=== PATIENT | female | born 1955 | race Caucasian/White ===

== ENCOUNTER 2017-06-25 18:47 | Emergency (ER) | payer OTHER ==
--- NOTE | 2017-06-25 19:17 | ED Physician Documentation ---
PD HPI HEAD INJURY - Stated complaint Stated Complaint: HEAD INJ - Chief complaint Chief Complaint: Neuro - History obtained from History obtained from: Patient, Family () - History of Present Illness Mechanism of head injury: Blow (Hit the top of her head quite hard with the larson of her car about an hour ago. She has a pressure-like frontal headache which she describes as moderate and some dizziness and blurry vision but no vomiting or nausea. She is not anticoagulated.) Review of Systems Constitutional: reports: Reviewed and negative Eyes: denies: Loss of vision, Photophobia, Discharge, Irritation Ears: denies: Loss of hearing, Ear pain Nose: denies: Rhinorrhea / runny nose, Congestion PD PAST MEDICAL HISTORY - Past Medical History ADMITTING MANAGER: Breast cancer - Past Surgical History General: Cholecystectomy, Other /ADMITTING MANAGER: Hysterectomy - Present Medications Home Medications: Ambulatory Orders Medication Instructions Recorded Confirmed Atorvastatin [Lipitor] 20 mg PO DAILY 11/03/16 06/25/17 Bacillus Coagulans [Probiotic] 1 tab PO BID 11/03/16 06/25/17 Calcium/Magnesium/Zinc 1 tab PO BID 11/03/16 06/25/17 [Neolvkd-Ywlxdjmdz-Vcsl Tablet] Digestive Enzymes Combo No.7 1 tab PO TID 11/03/16 06/25/17 [Superior Digestive Enzyme] Ergocalciferol [Vitamin D2] 5,000 mg PO DAILY 11/03/16 06/25/17 Levothyroxine [Synthroid] 50 mcg PO DAILY 11/03/16 06/25/17 Liothyronine [Cytomel] 5 mcg PO BID 11/03/16 06/25/17 Stanton-3 Fatty Acids [Fish Oil] 1 tab PO DAILY 11/03/16 06/25/17 Spironolactone 1 tab PO DAILY 11/03/16 06/25/17 Sumatriptan Succinate [Imitrex] 1 tab PO DAILY 11/03/16 06/25/17 metFORMIN [Glucophage] 1 tab PO DAILY 11/03/16 06/25/17 - Allergies Allergies/Adverse Reactions: Allergies Allergy/AdvReac Type Severity Reaction Status Date / Time Sulfa (Sulfonamide AdvReac Rash Verified 06/25/17 18:54 Antibiotics) zolpidem tartrate * AdvReac Nausea Verified 06/25/17 18:54 [From Ambien] - Social History Does the pt smoke?: No Smoking Status: Former smoker Does the pt drink ETOH?: No Does the pt have substance abuse?: No - Immunizations Immunizations are current?: No PD ED PE NORMAL - Vitals Vital signs reviewed: Yes - General General: Alert and oriented X 3, No acute distress - HEENT HEENT: PERRL, EOMI - Neck Neck: Supple, no meningeal sign, No bony TTP - Neuro Neuro: Alert and oriented X 3, electrical line splicer 2-12 intact, No motor deficit, No sensory deficit, Normal speech - Psych Psych: Normal mood, Normal affect Results - Vitals Vitals: Vital Signs - 24 hr 06/25/17 18:51 Temperature 36.0 C L Heart Rate 83 Respiratory 15 Rate Blood Pressure 144/65 H O2 Saturation 98 Oxygen O2 Source Room air - Rads (name of study) CT Head Radiology: EMP read contemporaneously (NAD) Departure - Departure Disposition: 01 Home, Self Care Clinical Impression: Concussion Qualifiers: Encounter type: initial encounter Loss of consciousness presence/duration: without LOC Qualified Code(s): S06.0X0A - Concussion without loss of consciousness, initial encounter Condition: Good Record reviewed to determine appropriate education?: Yes Instructions: ED Head Injury Closed Comments: Your blood pressure was elevated today on check into the emergency department. This does not mean that you have hypertension, it is a common phenomenon to come to the emergency department and have elevated blood pressure. I recommend that she see her primary care physician within the week to have it rechecked when you are feeling better.
[2017-06-25] MEDS ORDERED: ACETAMINOPHEN 500 MG TABLET PO STA (19:33)
[2017-06-25] MEDS ORDERED: ACETAMINOPHEN 500 MG TABLET PO ONE (19:39)
--- NOTE | 2017-06-25 19:44 | CT Preliminary Report ---
Exam: CT Head W/O IMPRESSION: 1. No acute intracranial abnormality is identified. [facility] SITE ID: [id number]
--- NOTE | 2017-06-25 19:46 | CT Report ---
EXAM: CT HEAD EXAM DATE: 06/25/2017 07:28 PM. CLINICAL HISTORY: Head injury. Taylor back fell on top of head. COMPARISON: None. TECHNIQUE: Multiaxial CT images were obtained from the foramen magnum to the vertex. IV contrast: Non e. Reformats: Coronal. In accordance with CT protocol optimization, one or more of the following dose reduction techniques w ere utilized for this exam: automated exposure control, adjustment of mA and/or KV based on patient s ize, or use of iterative reconstructive technique. FINDINGS: Parenchyma: No intraparenchymal hemorrhage. No evidence of mass, midline shift, or CT findings of inf arction. Carrion-white differentiation is distinct. Extraaxial Spaces: Normal for age. No subdural or epidural collections identified. Ventricles: Normal in size and position. Sinuses: Imaged paranasal sinuses, orbits, and mastoids show no significant abnormality. Bones: No evidence of fracture or calvarial defect. Other: None. IMPRESSION: 1. No acute intracranial abnormality is identified. [facility] Referring Provider Line: [phone] SITE ID: [id number]
[2017-06-25 20:00] VITALS: BP 126/68
== END 2017-06-25 20:05 | disposition home or self-care (01) ==
LOC: ED 18:47
DX: S06.0X0A Concussion without loss of consciousness, initial encounter (principal); W22.09XA Striking against other stationary object, initial encounter; Z85.3 Personal history of malignant neoplasm of breast; Z87.891 Personal history of nicotine dependence; R03.0 Elevated blood-pressure reading, without diagnosis of hypertension
CPT/HCPCS: 70450; 99283; A9270

== ENCOUNTER 2017-09-01 07:04 | Outpatient (CLI) | payer OTHER ==
[2017-09-01 12:36] LABS: ALBUMIN/GLOBULIN RATIO 1.3 (1.0-2.2); BILIRUBIN,TOTAL 0.3 mg/dL (0.2-1.0); CALCIUM 9.6 mg/dL (8.5-10.3); POTASSIUM 3.9 mmol/L (3.5-5.0); TOTAL PROTEIN 7.5 g/dL (6.7-8.2)
[2017-09-01 12:40] LABS: CHOL/HDL RATIO 2.8 (<4.4); CHOLESTEROL 152 mg/dL; HDL CHOLESTEROL 55 mg/dL; LDL/HDL RATIO 1.4 (<4.4); TRIGLYCERIDES 89 mg/dL; VLDL CHOLESTEROL 18 mg/dL
[2017-09-01 12:43] LABS: HEMOGLOBIN A1C 0.56 g/dL
[2017-09-01 12:50] LABS: THYROID STIMULATING HORMONE 1.89 uIU/mL (0.34-5.60)
== END 2017-09-01 07:05 | disposition home or self-care (01) ==
LOC: LAB.F 07:04
PROVIDERS: ATTEND Internal Medicine
DX: Z00.00 Encounter for general adult medical examination without abnormal findings (principal); E03.8 Other specified hypothyroidism; E78.2 Mixed hyperlipidemia; E03.9 Hypothyroidism, unspecified
CPT/HCPCS: 36415; 80053; 80061; 83036; 84436; 84439; 84443; 84481

== ENCOUNTER 2018-06-22 07:30 | Outpatient (CLI) | payer BC ==
[2018-06-22 12:03] LABS: ALBUMIN 3.8 g/dL (3.2-5.5); ALBUMIN/GLOBULIN RATIO 1.2 (1.0-2.2); ALKALINE PHOSPHATASE 64 IU/L (42-121); ALT ALANINE AMINOTRANSFERASE 26 IU/L (10-60); AST ASPARTATE AMINOTRANSFERASE 21 IU/L (10-42); BILIRUBIN,TOTAL 0.8 mg/dL (0.2-1.0); BUN - BLOOD UREA NITROGEN 20 mg/dL (6-20); CARBON DIOXIDE - CO2 26 mmol/L (21-32); CHLORIDE 106 mmol/L (101-111); CHOL/HDL RATIO 2.8 (<4.4); CHOLESTEROL 159 mg/dL; CREATININE 0.8 mg/dL (0.4-1.0); GFR - MDRD 72 (>89); GLUCOSE 96 mg/dL (70-100); HDL CHOLESTEROL 56 mg/dL; LDL CHOLESTEROL,CALCULATED 80 mg/dL; LDL/HDL RATIO 1.4 (<4.4); SODIUM 139 mmol/L (135-145); TOTAL PROTEIN 7.1 g/dL (6.7-8.2); VLDL CHOLESTEROL 23 mg/dL
[2018-06-22 12:06] LABS: CREATININE,URINE 118.8 mg/dL; MICROALBUM/CREATININE RATIO,UR 2.5 ug/mg (<30.0); MICROALBUMIN,URINE 0.3 mg/dL (0-300.0)
[2018-06-22 12:07] LABS: HB2 TOTAL 14.4 g/dL; HEMOGLOBIN A1C 0.54 g/dL; HEMOGLOBIN A1C % 5.6 % (4.6-6.2)
[2018-06-22 12:13] LABS: THYROID STIMULATING HORMONE 1.13 uIU/mL (0.34-5.60)
[2018-06-22 12:15] LABS: FREE T4 (FREE THYROXINE) 0.75 ng/dL (0.58-1.64)
== END 2018-06-22 07:31 | disposition home or self-care (01) ==
LOC: LAB.F 07:30
PROVIDERS: ATTEND Internal Medicine Endocrinology, Diabetes & Metabolism
DX: E03.8 Other specified hypothyroidism (principal); E88.81 Metabolic syndrome and other insulin resistance
CPT/HCPCS: 36415; 80053; 80061; 82043; 82570; 83036; 83721; 84439; 84443; 84481

== ENCOUNTER 2018-09-22 08:00 | Outpatient (CLI) | payer BC | END 2018-09-22 08:01 | disposition home or self-care (01) | LOC: LAB.R 08:00 | PROVIDERS: ATTEND Internal Medicine | DX: R15.2 Fecal urgency (principal) | CPT/HCPCS: 81599; 87045; 87046; 87493 ==

== ENCOUNTER 2018-12-07 07:02 | Outpatient (CLI) | payer BC ==
[2018-12-07 11:59] LABS: ALBUMIN 3.9 g/dL (3.2-5.5); ALBUMIN/GLOBULIN RATIO 1.3 (1.0-2.2); ALKALINE PHOSPHATASE 92 IU/L (42-121); ALT ALANINE AMINOTRANSFERASE 38 IU/L (10-60); AST ASPARTATE AMINOTRANSFERASE 33 IU/L (10-42); BILIRUBIN,TOTAL 0.7 mg/dL (0.2-1.0); BUN - BLOOD UREA NITROGEN 14 mg/dL (6-20); CALCIUM 8.7 mg/dL (8.5-10.3); CARBON DIOXIDE - CO2 26 mmol/L (21-32); CHLORIDE 102 mmol/L (101-111); CHOL/HDL RATIO 4.7 (<4.4); CHOLESTEROL 274 mg/dL; CREATININE 0.6 mg/dL (0.4-1.0); GFR - MDRD 101 (>89); GLUCOSE 91 mg/dL (70-100); HDL CHOLESTEROL 58 mg/dL; LDL CHOLESTEROL,CALCULATED 182 mg/dL; LDL/HDL RATIO 3.1 (<4.4); SODIUM 137 mmol/L (135-145); TOTAL PROTEIN 6.9 g/dL (6.7-8.2); VLDL CHOLESTEROL 34 mg/dL
[2018-12-07 12:06] LABS: T4 (THYROXINE) 8.64 ug/dL (6.09-12.23)
[2018-12-07 12:09] LABS: THYROID STIMULATING HORMONE 2.26 uIU/mL (0.34-5.60)
[2018-12-07 12:54] LABS: HEMOGLOBIN A1C 0.56 g/dL; HEMOGLOBIN A1C % 5.6 % (4.6-6.2)
[2018-12-08 12:28] LABS: HEPATITIS C ANTIBODY NON-REACTIVE (NON-REACTIVE)
== END 2018-12-07 07:03 | disposition home or self-care (01) ==
LOC: LAB.F 07:02
PROVIDERS: ATTEND Internal Medicine
DX: Z00.00 Encounter for general adult medical examination without abnormal findings (principal); E78.2 Mixed hyperlipidemia; E03.9 Hypothyroidism, unspecified; Z11.59 Encounter for screening for other viral diseases
CPT/HCPCS: 36415; 80053; 80061; 83036; 83721; 84436; 84443; 84481; 86803

== ENCOUNTER 2018-12-17 13:46 | Emergency (ER) | payer BC ==
[2018-12-17 14:27] LABS: BASOPHILS # (AUTO) 0.1 10^3/uL (0.0-0.1); BASOPHILS % (AUTO) 0.9 %; EOSINOPHILS # (AUTO) 0.1 10^3/uL (0.0-0.7); EOSINOPHILS % (AUTO) 1.2 %; HGB - HEMOGLOBIN 14.6 g/dL (12.0-16.0); LYMPHOCYTES # (AUTO) 1.7 10^3/uL (1.5-3.5); LYMPHOCYTES % (AUTO) 25.5 %; MEAN CORPUSCULAR HEMOGLOBIN 29.7 pg (27.0-31.0); MEAN CORPUSCULAR VOLUME 87.2 fL (81.0-99.0); MEAN PLATELET VOLUME 7.2 fL (7.9-10.8); MONOCYTES # (AUTO) 0.5 10^3/uL (0.0-1.0); MONOCYTES % (AUTO) 6.9 %; NEUTROPHILS # (AUTO) 4.3 10^3/uL (1.5-6.6); NEUTROPHILS % (AUTO) 65.5 %; PLT - PLATELET COUNT 326 10^3/uL (130-450); RED BLOOD COUNT 4.93 10^6/uL (4.20-5.40); RED CELL DISTRIBUTION WIDTH 13.1 % (12.0-15.0); WHITE BLOOD COUNT 6.6 x10^3/uL (4.8-10.8)
--- NOTE | 2018-12-17 14:30 | XRAY Report ---
Reason: chest pain Procedure Date: 12/17/2018 Accession Number: [id number] / [id number] Procedure: XR - Chest 1 View X-Ray CPT Code: 29875 FULL RESULT: EXAM: CHEST RADIOGRAPHY EXAM DATE: 12/17/2018 02:06 PM. CLINICAL HISTORY: Chest pain. History of breast cancer. Family history of heart disease. COMPARISON: 03/21/2012 11:02 AM. TECHNIQUE: 1 view. FINDINGS: Lungs/Pleura: No focal opacities evident. No pleural effusion. No pneumothorax. Mediastinum: Within exam limitations, the cardiomediastinal contour is normal. Other: None. IMPRESSION: Normal single view chest. [facility]
--- NOTE | 2018-12-17 14:33 | ED Physician Documentation ---
PD HPI CHEST PAIN - Stated complaint Stated Complaint: CHEST PX - Chief complaint Chief Complaint: Cardiac - History obtained from History obtained from: Patient - History of Present Illness Timing - onset: Today (she has had right sided headache for several days, not typical for migraines, and then today had feeling of lightheaded, and some chest pressure across chest. Some posterior neck pain. Seen by PMD yesterday for routine visit and told of the headache. Had some labs and ESR done, which resulted today as normal. Also had heart calcium scoring done and it was 0, per patient, so very low risk of CAD.) Timing - onset during: Rest Timing - details: Gradual onset, Still present, Waxing and waning Quality: Pressure, Tightness. No: Sharp, Tearing Location: Substernal Radiation: Neck, Back Worsened by: No: Exertion, Inspiration Associated symptoms: Shortness of air, Nausea, Feeling faint / dizzy. No: Vomiting, General Weakness, Palpitations, Cough Similar symptoms before: Has not had sx before Recently seen: Clinic (yesterday) Review of Systems Constitutional: denies: Fever, Chills, Myalgias Nose: denies: Rhinorrhea / runny nose, Congestion Throat: denies: Sore throat Cardiac: denies: Palpitations, Pedal edema, Calf pain Respiratory: denies: Cough, Wheezing GI: reports: Nausea. denies: Abdominal Pain, Vomiting, Diarrhea Neurologic: reports: Headache (for past 3-4 days). 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 MECHANIC: Hysterectomy - Present Medications Home Medications: Ambulatory Orders Medication Instructions Recorded Confirmed Bacillus Coagulans [Probiotic] 1 tab PO BID 11/03/16 12/17/18 Calcium/Magnesium/Zinc 1 tab PO BID 11/03/16 12/17/18 [Pjtyppb-Qnmjlmggo-Doxw Tablet] Digestive Enzymes Combo No.7 1 tab PO TID 11/03/16 12/17/18 [Superior Digestive Enzyme] Levothyroxine [Synthroid] 50 mcg PO DAILY 11/03/16 12/17/18 Liothyronine [Cytomel] 5 mcg PO BID 11/03/16 12/17/18 Sumatriptan Succinate [Imitrex] 1 tab PO DAILY 11/03/16 12/17/18 metFORMIN [Glucophage] 1 tab PO DAILY 11/03/16 12/17/18 Dexamethasone [Decadron] 4 mg PO DAILY #5 tablet 12/17/18 Ondansetron Odt [Zofran] 4 mg TL Q6H PRN #10 tablet 12/17/18 - Allergies Allergies/Adverse Reactions: Allergies Allergy/AdvReac Type Severity Reaction Status Date / Time Sulfa (Sulfonamide AdvReac Rash Verified 06/25/17 18:54 Antibiotics) zolpidem tartrate * AdvReac Nausea Verified 12/17/18 13:55 [From Ambien] - Social History Does the pt smoke?: No Smoking Status: Former smoker Does the pt drink ETOH?: No Does the pt have substance abuse?: No - Immunizations Immunizations are current?: No PD ED PE NORMAL - Vitals Vital signs reviewed: Yes - General General: Alert and oriented X 3, Well developed/nourished - HEENT HEENT: Ears normal, Moist mucous membranes, Pharynx benign, Other (mild tenderness at temples bilaterally. ) - Neck Neck: Supple, no meningeal sign, No adenopathy - Cardiac Cardiac: RRR, No murmur - Respiratory Respiratory: Clear bilaterally, Other (no chestwall tenderness) - Abdomen Abdomen: Soft, Non tender - Back Back: No CVA TTP - Derm Derm: Normal color, Warm and dry, No rash - Extremities Extremities: No tenderness to palpate, Normal ROM s pain, No edema, No calf tenderness / cord - Neuro Neuro: Alert and oriented X 3, special agent in charge 2-12 intact, No motor deficit, No sensory deficit, Normal speech Eye Opening: Spontaneous Motor: Obeys Commands Verbal: Oriented GCS Score: 15 Results - Vitals Vitals: Vital Signs - 24 hr 12/17/18 12/17/18 12/17/18 13:52 14:36 16:26 Temperature 36.1 C L Heart Rate 100 75 66 Respiratory 20 16 14 Rate Blood Pressure 144/78 H 141/80 H 126/75 O2 Saturation 96 100 98 Oxygen O2 Source Room air - Labs Labs: Laboratory Tests 12/17/18 12/17/18 12/17/18 13:59 13:59 13:59 WBC 6.6 RBC 4.93 Hgb 14.6 Hct 43.0 MCV 87.2 MCH 29.7 MCHC 34.0 RDW 13.1 Plt Count 326 MPV 7.2 L Neut # (Auto) 4.3 Lymph # (Auto) 1.7 Dougherty # (Auto) 0.5 Eos # (Auto) 0.1 Baso # (Auto) 0.1 Absolute Nucleated RBC 0.01 Nucleated RBC % 0.1 D-Dimer Sodium 139 Potassium 3.8 Chloride 105 Carbon Dioxide 25 Anion Gap 9.0 BUN 21 H Creatinine 0.9 Estimated GFR (MDRD) 63 L Glucose 95 Calcium 9.3 Total Bilirubin 0.7 AST 25 ALT 28 Alkaline Phosphatase 96 Troponin I < 0.04 Total Protein 7.8 Albumin 4.4 Globulin 3.4 Albumin/Globulin Ratio 1.3 Lipase 35 12/17/18 13:59 WBC RBC Hgb Hct MCV MCH MCHC RDW Plt Count MPV Neut # (Auto) Lymph # (Auto) Dougherty # (Auto) Eos # (Auto) Baso # (Auto) Absolute Nucleated RBC Nucleated RBC % D-Dimer < 200.0 L Sodium Potassium Chloride Carbon Dioxide Anion Gap BUN Creatinine Estimated GFR (MDRD) Glucose Calcium Total Bilirubin AST ALT Alkaline Phosphatase Troponin I Total Protein Albumin Globulin Albumin/Globulin Ratio Lipase PD MEDICAL DECISION MAKING - ED course Complexity details: reviewed results (she also had ESR done at PMD office yesterday which resulted at 20 (normal range).), considered differential (her headache is improved with meds tailored toward migraine. I don't feel imaging is needed. Her chest pain does not sound exertional, and her tests are negative, so I don't feel further testing needed (negative trop, BNP, d-dimer, ESR (from PMD office yesterday) and CXR). Also had calcium scoring result 0 yesterday, adding to low risk for CAD. ), d/w patient Departure - Departure Disposition: 01 Home, Self Care Clinical Impression: Tightness in chest Migraine headache Qualifiers: Migraine type: without aura Status migrainosus presence: with status migrainosus Intractability: not intractable Qualified Code(s): G43.001 - Migraine without aura, not intractable, with status migrainosus Condition: Stable Record reviewed to determine appropriate education?: Yes Instructions: ED Chest Pain Atypical Unkn Cause, ED Cephalgia Unspecified Follow-Up: Francisco Ching MD [Primary Care Provider] - Prescriptions: Dexamethasone [Decadron] 4 mg PO DAILY #5 tablet Ondansetron Odt [Zofran] 4 mg TL Q6H PRN #10 tablet PRN Reason: Nausea / Vomiting Comments: There is no signs of more significant cause of the chest tightness. See how it does over the next few days. Consider some anti-inflammatory such as naproxen or ibuprofen couple times a day. The headache sounds like a an atypical persistent migraine. Consider continuing steroid daily for the next few days to minimize rebound. Ondansetron if needed for nausea. Recheck if recurrent or persistent headache or other symptoms. Discharge Date/Time: 12/17/18 16:54
[2018-12-17 14:41] LABS: ALBUMIN 4.4 g/dL (3.2-5.5); ALBUMIN/GLOBULIN RATIO 1.3 (1.0-2.2); BILIRUBIN,TOTAL 0.7 mg/dL (0.2-1.0); CALCIUM 9.3 mg/dL (8.5-10.3); CREATININE 0.9 mg/dL (0.4-1.0); TOTAL PROTEIN 7.8 g/dL (6.7-8.2)
[2018-12-17] MEDS ORDERED: SODIUM CHLORIDE 0.9% 1,000 ML IV ONE (15:00)
[2018-12-17] MEDS ORDERED: KETOROLAC 30 MG/ML VIAL IVP STA (15:01)
[2018-12-17] MEDS ORDERED: PROCHLORPERAZINE 10 MG/2 ML VIAL IVP STA (15:01)
[2018-12-17] MEDS ORDERED: DEXAMETHASONE 10 MG/ML VIAL IVP STA (15:01)
[2018-12-17] MEDS ORDERED: diphenhydrAMINE INJ 50 MG/ML VIAL IVP STA (15:01)
[2018-12-17 16:27] VITALS: BP 126/75
== END 2018-12-17 16:54 | disposition home or self-care (01) ==
LOC: ED 13:46
DX: R07.89 Other chest pain (principal); G43.001 Migraine without aura, not intractable, with status migrainosus; E11.9 Type 2 diabetes mellitus without complications; E03.9 Hypothyroidism, unspecified; Z87.891 Personal history of nicotine dependence
CPT/HCPCS: 36415; 71045; 80053; 83690; 84484; 85025; 85379; 93005; 96374; 96375; 99283; 99284; J1200

== ENCOUNTER 2019-02-02 09:51 | Outpatient (CLI) | payer BC ==
[2019-02-02 18:24] LABS: ALBUMIN 4.3 g/dL (3.2-5.5); ALBUMIN/GLOBULIN RATIO 1.4 (1.0-2.2); BILIRUBIN,TOTAL 0.7 mg/dL (0.2-1.0); CALCIUM 9.1 mg/dL (8.5-10.3); CREATININE 0.7 mg/dL (0.4-1.0); TOTAL PROTEIN 7.3 g/dL (6.7-8.2)
[2019-02-02 20:19] LABS: HB2 TOTAL 15.7 g/dL; HEMOGLOBIN A1C 0.58 g/dL; HEMOGLOBIN A1C % 5.5 % (4.6-6.2)
== END 2019-02-02 09:52 | disposition home or self-care (01) ==
LOC: LAB.F 09:51
PROVIDERS: ATTEND Internal Medicine Endocrinology, Diabetes & Metabolism
DX: E88.81 Metabolic syndrome and other insulin resistance (principal)
CPT/HCPCS: 36415; 80053; 81599; 83036; 83525

== ENCOUNTER 2019-06-13 07:12 | Outpatient (CLI) | payer BC ==
[2019-06-13 10:22] LABS: ALBUMIN 4.1 g/dL (3.2-5.5); ALBUMIN/GLOBULIN RATIO 1.2 (1.0-2.2); ALKALINE PHOSPHATASE 77 IU/L (42-121); ALT ALANINE AMINOTRANSFERASE 18 IU/L (10-60); AST ASPARTATE AMINOTRANSFERASE 17 IU/L (10-42); BILIRUBIN,TOTAL 0.7 mg/dL (0.2-1.0); BUN - BLOOD UREA NITROGEN 21 mg/dL (6-20); CALCIUM 9.3 mg/dL (8.5-10.3); CARBON DIOXIDE - CO2 25 mmol/L (21-32); CHLORIDE 106 mmol/L (101-111); CHOLESTEROL 277 mg/dL; CREATININE 0.9 mg/dL (0.4-1.0); GFR - MDRD 63 (>89); GLUCOSE 97 mg/dL (70-100); HDL CHOLESTEROL 55 mg/dL; LDL CHOLESTEROL,CALCULATED 190 mg/dL; LDL/HDL RATIO 3.5 (<4.4); SODIUM 142 mmol/L (135-145); TOTAL PROTEIN 7.4 g/dL (6.7-8.2); VLDL CHOLESTEROL 32 mg/dL
[2019-06-13 10:30] LABS: CREATININE,URINE 140.1 mg/dL; MICROALBUM/CREATININE RATIO,UR 3.6 ug/mg (<30.0); MICROALBUMIN,URINE 0.5 mg/dL (0-300.0)
[2019-06-13 10:32] LABS: HB2 TOTAL 14.4 g/dL; HEMOGLOBIN A1C 0.59 g/dL; HEMOGLOBIN A1C % 5.9 % (4.6-6.2); THYROID STIMULATING HORMONE 1.74 uIU/mL (0.34-5.60)
[2019-06-13 10:34] LABS: FREE T4 (FREE THYROXINE) 0.71 ng/dL (0.58-1.64)
== END 2019-06-13 07:13 | disposition home or self-care (01) ==
LOC: LAB.S 07:12
PROVIDERS: ATTEND Internal Medicine Endocrinology, Diabetes & Metabolism
DX: E03.8 Other specified hypothyroidism (principal); E88.81 Metabolic syndrome and other insulin resistance
CPT/HCPCS: 36415; 80053; 80061; 82043; 82570; 83036; 83721; 84439; 84443; 84481

== ENCOUNTER 2019-07-17 07:05 | Outpatient (CLI) | payer BC ==
[2019-07-17 10:13] LABS: BASOPHILS # (AUTO) 0.1 10^3/uL (0.0-0.1); BASOPHILS % (AUTO) 0.8 %; EOSINOPHILS # (AUTO) 0.2 10^3/uL (0.0-0.7); EOSINOPHILS % (AUTO) 3.4 %; HGB - HEMOGLOBIN 13.4 g/dL (12.0-16.0); LYMPHOCYTES % (AUTO) 34.1 %; MEAN CORPUSCULAR HEMOGLOBIN 30.2 pg (27.0-31.0); MEAN CORPUSCULAR VOLUME 91.6 fL (81.0-99.0); MEAN PLATELET VOLUME 9.5 fL (7.9-10.8); MONOCYTES # (AUTO) 0.7 10^3/uL (0.0-1.0); MONOCYTES % (AUTO) 11.4 %; NEUTROPHILS # (AUTO) 2.9 10^3/uL (1.5-6.6); PLT - PLATELET COUNT 286 10^3/uL (130-450); RED BLOOD COUNT 4.43 10^6/uL (4.20-5.40); RED CELL DISTRIBUTION WIDTH 13.2 % (12.0-15.0); WHITE BLOOD COUNT 5.9 x10^3/uL (4.8-10.8)
[2019-07-17 10:32] LABS: URIC ACID 7.6 mg/dL (2.6-7.2)
[2019-07-17 10:34] LABS: CRP - C-REACTIVE PROTEIN < 1.0 mg/dL (0-1.0)
== END 2019-07-17 07:06 | disposition home or self-care (01) ==
LOC: LAB.S 07:05
PROVIDERS: ATTEND Internal Medicine Endocrinology, Diabetes & Metabolism
DX: E88.81 Metabolic syndrome and other insulin resistance (principal); M79.674 Pain in right toe(s); M77.41 Metatarsalgia, right foot
CPT/HCPCS: 36415; 84550; 85025; 85651; 86140

== ENCOUNTER 2020-12-20 09:01 | Outpatient (CLI) | payer BC ==
[2020-12-20 15:33] LABS: ALBUMIN/GLOBULIN RATIO 1.2 (1.0-2.2); ALKALINE PHOSPHATASE 80 IU/L (42-121); ALT ALANINE AMINOTRANSFERASE 21 IU/L (10-60); AST ASPARTATE AMINOTRANSFERASE 19 IU/L (10-42); BILIRUBIN,TOTAL 0.7 mg/dL (0.2-1.0); BUN - BLOOD UREA NITROGEN 16 mg/dL (6-20); CALCIUM 9.2 mg/dL (8.5-10.3); CARBON DIOXIDE - CO2 26 mmol/L (21-32); CHLORIDE 102 mmol/L (101-111); CHOL/HDL RATIO 4.5 (<4.4); CHOLESTEROL 261 mg/dL; CREATININE 0.7 mg/dL (0.4-1.0); GLUCOSE 91 mg/dL (70-100); HDL CHOLESTEROL 58 mg/dL; LDL CHOLESTEROL,CALCULATED 175 mg/dL; TOTAL PROTEIN 7.3 g/dL (6.7-8.2); VLDL CHOLESTEROL 28 mg/dL
[2020-12-20 15:41] LABS: T4 (THYROXINE) 8.17 ug/dL (6.09-12.23)
[2020-12-20 15:44] LABS: THYROID STIMULATING HORMONE 0.91 uIU/mL (0.34-5.60)
[2020-12-20 15:46] LABS: FREE T3 4.44 pg/mL (2.5-3.9)
[2020-12-20 17:15] LABS: HEMOGLOBIN A1c% 5.8 % (4.27-6.07)
== END 2020-12-20 09:02 | disposition home or self-care (01) ==
LOC: LAB.S 09:01
PROVIDERS: ATTEND Internal Medicine
DX: Z00.00 Encounter for general adult medical examination without abnormal findings (principal); E78.2 Mixed hyperlipidemia; E03.9 Hypothyroidism, unspecified
CPT/HCPCS: 36415; 80053; 80061; 83036; 83721; 84436; 84443; 84481

== ENCOUNTER 2021-08-06 07:03 | Outpatient (CLI) | payer BC ==
[2021-08-06 15:19] LABS: ALBUMIN 4.2 g/dL (3.2-5.5); ALBUMIN/GLOBULIN RATIO 1.4 (1.0-2.2); ALKALINE PHOSPHATASE 70 IU/L (42-121); ALT ALANINE AMINOTRANSFERASE 19 IU/L (10-60); AST ASPARTATE AMINOTRANSFERASE 18 IU/L (10-42); BILIRUBIN,TOTAL 0.5 mg/dL (0.2-1.0); BUN - BLOOD UREA NITROGEN 21 mg/dL (6-20); CARBON DIOXIDE - CO2 27 mmol/L (21-32); CHLORIDE 102 mmol/L (101-111); CHOL/HDL RATIO 4.3 (<4.4); CHOLESTEROL 247 mg/dL; CREATININE 0.7 mg/dL (0.4-1.0); GFR - MDRD 84 (>89); GLUCOSE 101 mg/dL (70-100); HDL CHOLESTEROL 57 mg/dL; LDL CHOLESTEROL,CALCULATED 170 mg/dL; POTASSIUM 3.6 mmol/L (3.5-5.0); SODIUM 139 mmol/L (135-145); TOTAL PROTEIN 7.1 g/dL (6.7-8.2); TRIGLYCERIDES 98 mg/dL; VLDL CHOLESTEROL 20 mg/dL
[2021-08-06 21:04] LABS: ESTIMATED AVERAGE GLUCOSE 120 mg/dL (70-100); HEMOGLOBIN A1c% 5.8 % (4.27-6.07)
== END 2021-08-06 07:04 | disposition home or self-care (01) ==
LOC: LAB.S 07:03
PROVIDERS: ATTEND Nurse Practitioner
DX: E88.1 Lipodystrophy, not elsewhere classified (principal); R73.03 Prediabetes; E78.5 Hyperlipidemia, unspecified; E28.2 Polycystic ovarian syndrome; E03.9 Hypothyroidism, unspecified; G43.819 Other migraine, intractable, without status migrainosus; E66.9 Obesity, unspecified; Z68.32 Body mass index [BMI] 32.0-32.9, adult
CPT/HCPCS: 36415; 80053; 80061; 83036; 83721

== ENCOUNTER 2021-09-03 08:37 | Outpatient (CLI) | payer BC ==
[2021-09-03 15:37] LABS: THYROID STIMULATING HORMONE 1.86 uIU/mL (0.34-5.60)
[2021-09-03 15:39] LABS: FREE T3 2.96 pg/mL (2.5-3.9); FREE T4 (FREE THYROXINE) 0.79 ng/dL (0.58-1.64)
== END 2021-09-03 08:38 | disposition home or self-care (01) ==
LOC: LAB.S 08:37
PROVIDERS: ATTEND Internal Medicine Endocrinology, Diabetes & Metabolism
DX: E03.9 Hypothyroidism, unspecified (principal)
CPT/HCPCS: 36415; 84439; 84443; 84481

== ENCOUNTER 2021-12-17 07:19 | Outpatient (CLI) | payer BC ==
[2021-12-17 15:38] LABS: ALBUMIN 3.8 g/dL (3.2-5.5); ALBUMIN/GLOBULIN RATIO 1.2 (1.0-2.2); ALKALINE PHOSPHATASE 64 IU/L (42-121); ALT ALANINE AMINOTRANSFERASE 16 IU/L (10-60); AST ASPARTATE AMINOTRANSFERASE 17 IU/L (10-42); BILIRUBIN,TOTAL 0.6 mg/dL (0.2-1.0); BUN - BLOOD UREA NITROGEN 23 mg/dL (6-20); CALCIUM 8.6 mg/dL (8.5-10.3); CARBON DIOXIDE - CO2 25 mmol/L (21-32); CHLORIDE 101 mmol/L (101-111); CHOL/HDL RATIO 3.9 (<4.4); CHOLESTEROL 257 mg/dL; CREATININE 0.7 mg/dL (0.4-1.0); GFR - MDRD 83 (>89); GLUCOSE 102 mg/dL (70-100); HDL CHOLESTEROL 66 mg/dL; LDL CHOLESTEROL,CALCULATED 175 mg/dL; LDL/HDL RATIO 2.7 (<4.4); POTASSIUM 3.7 mmol/L (3.5-5.0); SODIUM 135 mmol/L (135-145); TOTAL PROTEIN 6.9 g/dL (6.7-8.2); TRIGLYCERIDES 82 mg/dL; VLDL CHOLESTEROL 16 mg/dL
[2021-12-17 17:58] LABS: ESTIMATED AVERAGE GLUCOSE 123 mg/dL (70-100); HEMOGLOBIN A1c% 5.9 % (4.27-6.07)
== END 2021-12-17 07:20 | disposition home or self-care (01) ==
LOC: LAB.S 07:19
PROVIDERS: ATTEND Nurse Practitioner
DX: E88.81 Metabolic syndrome and other insulin resistance (principal); E78.5 Hyperlipidemia, unspecified; E28.2 Polycystic ovarian syndrome; E66.9 Obesity, unspecified; Z68.32 Body mass index [BMI] 32.0-32.9, adult
CPT/HCPCS: 36415; 80053; 80061; 83036; 83721

== ENCOUNTER 2021-12-30 08:00 | Outpatient (CLI) | payer BC ==
--- NOTE | 2021-12-30 17:38 | XRAY Report ---
PROCEDURE: Knee 3 View RT INDICATIONS: RIGHT KNEE PAIN TECHNIQUE: 3 views of the right knee(s) were acquired. COMPARISON: None. FINDINGS: Bones: No fractures or dislocations. Mild to moderate tricompartmental osteoarthritis is seen more p rominent in medial femoral tibial compartment. No patella subluxation. No suspicious bony lesions. Soft tissues: No joint effusion. No suspicious soft tissue calcifications. IMPRESSION: No acute right knee fracture or dislocation. Mild to moderate tricompartmental osteoarth ritis. No significant joint effusion. Reviewed by: Elian Frye MD on 12/30/2021 5:37 PM PST Approved by: Elian Frye MD on 12/30/2021 5:37 PM PST Station ID: [id number]
== END 2021-12-30 23:59 | disposition home or self-care (01) ==
LOC: DI.S 08:00
PROVIDERS: ATTEND Physician Assistant Medical
DX: M17.11 Unilateral primary osteoarthritis, right knee (principal)

== ENCOUNTER 2022-10-29 07:01 | Outpatient (CLI) | payer BC ==
[2022-10-29 15:40] LABS: THYROID STIMULATING HORMONE 2.85 uIU/mL (0.34-5.60)
[2022-10-29 15:42] LABS: FREE T4 (FREE THYROXINE) 0.72 ng/dL (0.58-1.64)
[2022-10-29 15:43] LABS: FREE T3 3.13 pg/mL (2.5-3.9)
== END 2022-10-29 07:02 | disposition home or self-care (01) ==
LOC: LAB.S 07:01
PROVIDERS: ATTEND Internal Medicine Endocrinology, Diabetes & Metabolism
DX: E03.9 Hypothyroidism, unspecified (principal)
CPT/HCPCS: 36415; 84439; 84443; 84481

== ENCOUNTER 2023-05-10 07:05 | Outpatient (CLI) | payer BC ==
[2023-05-10 15:49] LABS: FREE T3 2.45 pg/mL (2.5-3.9); THYROID STIMULATING HORMONE 0.32 uIU/mL (0.34-5.60)
[2023-05-10 15:51] LABS: FREE T4 (FREE THYROXINE) 0.79 ng/dL (0.58-1.64)
== END 2023-05-10 07:06 | disposition home or self-care (01) ==
LOC: LAB.S 07:05
PROVIDERS: ATTEND Internal Medicine Endocrinology, Diabetes & Metabolism
DX: E03.9 Hypothyroidism, unspecified (principal)
CPT/HCPCS: 36415; 84439; 84443; 84481

== ENCOUNTER 2023-09-30 15:22 | Emergency (ER) | payer BC ==
[2023-09-30 15:48] VITALS: O2SAT 100
--- NOTE | 2023-09-30 18:10 | Ultrasound Report ---
PROCEDURE: Duplex Ext Veins Right INDICATIONS: leg swelling TECHNIQUE: Real-time imaging, as well as color and pulse Doppler interrogation, were performed of th e lower extremity deep veins from the inguinal ligament to the popliteal fossa. Attempted visualizati on of the calf veins was performed. COMPARISON: None. FINDINGS: The deep veins are normally compressible, and free of intraluminal thrombus. Color and pu lse Doppler demonstrate normal phasic intraluminal flow. There is normal augmentation response to di stal compression maneuver. Lateral soft tissue hematoma measures 6.3 x 1.5 x 5.6 cm IMPRESSION: No deep venous thrombosis of the visualized lower extremity. Lateral soft tissue hematoma Reviewed by: Wilbert Trevizo MD on 09/30/2023 5:09 PM [facility] Approved by: Wilbert Trevizo MD on 09/30/2023 5:09 PM CRISTIAN Station ID: [id number]
--- NOTE | 2023-09-30 18:17 | ED Physician Documentation ---
PD HPI LOWER EXT INJURY - Stated complaint Stated Complaint: RT LEG PX/SWELLING - Chief complaint Chief Complaint: Ext Problem - History of Present Illness PD HPI LOW EXT INJURY LOCATION: Right - Additional information Additional information: She had a TKR at [facility] yesterday. Today had increased right leg swelling and was referred here for DVT work-up. No shortness of breath or chest pain. No anticoagulants. 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 - Past Surgical History Past Surgical History: Yes General: Cholecystectomy, Other Ortho: Knee replacement /LIME SLUDGE MIXER: Hysterectomy - Present Medications Home Medications: Ambulatory Orders Medication Instructions Recorded Confirmed Bacillus Coagulans [Probiotic] 1 tab PO BID 11/03/16 12/17/18 Calcium/Magnesium/Zinc 1 tab PO BID 11/03/16 12/17/18 [Efyatek-Wfilfpnpv-Dret Tablet] Digestive Enzymes Combo No.7 1 tab PO TID 11/03/16 12/17/18 [Superior Digestive Enzyme] Levothyroxine [Synthroid] 50 mcg PO DAILY 11/03/16 12/17/18 Liothyronine [Cytomel] 5 mcg PO BID 11/03/16 12/17/18 Sumatriptan Succinate [Imitrex] 1 tab PO DAILY 11/03/16 12/17/18 metFORMIN [Glucophage] 1 tab PO DAILY 11/03/16 12/17/18 Ondansetron Odt [Zofran] 4 mg TL Q6H PRN #10 tablet 12/17/18 dexAMETHasone [Decadron] 4 mg PO DAILY #5 tablet 12/17/18 - Allergies Allergies/Adverse Reactions: Allergies Allergy/AdvReac Type Severity Reaction Status Date / Time Sulfa (Sulfonamide AdvReac Rash Verified 06/25/17 18:54 Antibiotics) zolpidem tartrate * AdvReac Nausea Verified 12/17/18 13:55 [From Ambien] - Social History Does the pt smoke?: No Smoking Status: Never smoker Does the pt drink ETOH?: No Does the pt have substance abuse?: No - Immunizations Immunizations are current?: No PD ED PE NORMAL - Vitals Vital signs reviewed: Yes - General General: Alert and oriented X 3, No acute distress - Extremities Extremities: Other (Moderate swelling and bruising of the right calf, no tense compartments or significant pain with passive range of motion at the ankle.) - Neuro Neuro: Alert and oriented X 3 Results - Vitals Vitals: Vital Signs - 24 hr 09/30/23 09/30/23 15:45 18:24 Temperature 37 C Heart Rate 77 74 Respiratory 15 15 Rate Blood Pressure 115/53 L 125/59 L O2 Saturation 100 100 Oxygen O2 Source Room air - Rads (name of study) DVT ultrasound Relevant Findings:: Prelim report reviewed, Final report received PD Medical Decision Making - ED course ED course: She has a postoperative hematoma, no DVT. No clinical evidence of compartment syndrome. Conservative care was advised. She will follow-up with her surgeon next week. Departure - Departure Disposition: 01 Home, Self Care Clinical Impression: Right leg swelling Postoperative hematoma Qualifiers: Surgical complication system/body Area: musculoskeletal system Procedure type: musculoskeletal Qualified Code(s): M96.840 - Postprocedural hematoma of a musculoskeletal structure following a musculoskeletal system procedure Condition: Stable Record reviewed to determine appropriate education?: Yes Comments: Keep your postoperative visit scheduled for next . Let them know that you had no DVT but you did have a lateral soft tissue hematoma measuring 6.3 x 1.5 x 5.6 cm. Otherwise you can follow your postoperative instructions given to you yesterday. Return for new or worsening symptoms. Forms: PCP List Discharge Date/Time: 09/30/23 18:25
[2023-09-30 18:26] VITALS: BP 125/59
== END 2023-09-30 18:25 | disposition home or self-care (01) ==
LOC: ED 15:22
DX: M96.840 Postprocedural hematoma of a musculoskeletal structure following a musculoskeletal system procedure (principal); Z96.651 Presence of right artificial knee joint
CPT/HCPCS: 99282; 99284

== ENCOUNTER 2023-12-05 07:17 | Outpatient (CLI) | payer OTHER ==
[2023-12-05 17:22] LABS: THYROID STIMULATING HORMONE 0.88 uIU/mL (0.34-5.60)
== END 2023-12-05 07:18 | disposition home or self-care (01) ==
LOC: LAB.S 07:17
PROVIDERS: ATTEND Internal Medicine Endocrinology, Diabetes & Metabolism
DX: E03.9 Hypothyroidism, unspecified (principal)
CPT/HCPCS: 36415; 84439; 84443; 84481

== ENCOUNTER 2024-01-14 08:00 | Outpatient (CLI) | payer OTHER ==
[2024-01-14 18:04] LABS: RAPID STREP SCREEN Negative (Negative)
== END 2024-01-14 23:59 | disposition home or self-care (01) ==
LOC: LAB.N 08:00
PROVIDERS: ATTEND Emergency Medicine
DX: R07.0 Pain in throat (principal)
CPT/HCPCS: 87070; 87077; 87430